=== PATIENT | female | born 2000 | race Caucasian/White ===

== ENCOUNTER 2023-01-11 19:51 | Emergency (ER) | payer OTHER ==
[~2023-01-11] VITALS: Ht 160 cm; Wt 59.0 kg
[2023-01-11 20:02] VITALS: BP_SYST 111
[2023-01-11] MEDS ORDERED: NAPR-690 PO (20:59)
[2023-01-11 21:07] VITALS: BP_SYST 110
== END 2023-01-11 21:07 | disposition home or self-care (01) ==
LOC: SED 19:51
DX: S82.64XA Nondisplaced fracture of lateral malleolus of right fibula, initial encounter for closed fracture (principal); Z79.899 Other long term (current) drug therapy; W10.9XXA Fall (on) (from) unspecified stairs and steps, initial encounter; Y93.89 Activity, other specified; Y92.89 Other specified places as the place of occurrence of the external cause; Y99.8 Other external cause status
CPT/HCPCS: 81025; 99283